=== PATIENT | male | born 1950 | race Caucasian/White ===

== ENCOUNTER 2023-08-11 09:56 | Day surgery (SDC) | payer MEDICARE, OTHER ==
[~2023-08-11 09:56] MED LIST: Lactated Ringers 1,000 ML IV SCH; Sodium Chloride 0.9% 10 ML Syringe FLUSH PRN; Sodium Chloride 0.9% 10 ML Syringe FLUSH SCH
[2023-08-11] MEDS ORDERED: Propofol 200 MG/20 ML SDV ONE ×4 (10:11→11:10)
[2023-08-11] MEDS ORDERED: Ondansetron 4 MG/2 ML SDV ONE (10:30)
[2023-08-11] MEDS ORDERED: Lactated Ringers 1,000 ML IV ONE (11:00)
== END 2023-08-11 12:22 | disposition home or self-care (01) ==
LOC: JD.SDS 09:56
PROVIDERS: ATTEND Surgery
DX: Z12.11 Encounter for screening for malignant neoplasm of colon (principal); D12.5 Benign neoplasm of sigmoid colon; K51.40 Inflammatory polyps of colon without complications; K57.30 Diverticulosis of large intestine without perforation or abscess without bleeding; F41.8 Other specified anxiety disorders; I10 Essential (primary) hypertension; E78.5 Hyperlipidemia, unspecified; G47.00 Insomnia, unspecified; E11.9 Type 2 diabetes mellitus without complications; F17.210 Nicotine dependence, cigarettes, uncomplicated; Z88.8 Allergy status to other drugs, medicaments and biological substances; Z88.7 Allergy status to serum and vaccine; Z79.84 Long term (current) use of oral hypoglycemic drugs; Z79.899 Other long term (current) drug therapy
CPT/HCPCS: 45385; J2405; J2704; J7120; 88305; 88313

== ENCOUNTER 2023-11-19 10:50 | Day surgery (SDC) | payer MEDICARE, OTHER ==
[~2023-11-19 10:50] MED LIST changes: -Lactated Ringers 1,000 ML IV SCH; +Lidocaine 1% PF 2 ML SDV INJECT SCH; +Proparacaine 0.5% Ophth Soln 15 ML Bottle EYEBOTH SCH; -Sodium Chloride 0.9% 10 ML Syringe FLUSH PRN; -Sodium Chloride 0.9% 10 ML Syringe FLUSH SCH
[2023-11-19] MEDS: Polymyxin B/Trimethoprim 10 ML Bottle EYERT SCH (11:50)
[2023-11-19] MEDS: Brimonidine 0.2% Ophth Soln 5 ML Bottle EYERT SCH (11:55)
[2023-11-19] MEDS: Phenylephrine 2.5% Ophth Soln 2 ML Bot EYERT SCH (11:58)
[2023-11-19] MEDS: Tropicamide 1% Ophth Soln 3 ML Bottle EYERT SCH (12:00)
[2023-11-19] MEDS: Cefuroxime 10 MG/ML SYRINGE EYERT SCH (12:40)
[2023-11-19] MEDS ORDERED: Midazolam 1 MG/ML 2 ML SDV ONE (12:42)
[2023-11-19] MEDS ORDERED: Lactated Ringers 1,000 ML IV ONE (12:45)
[2023-11-19] MEDS ORDERED: Propofol 200 MG/20 ML SDV ONE (12:46)
[2023-11-19] MEDS: Pilocarpine 4% Ophth Soln 15 ML Bot EYERT SCH (13:00)
== END 2023-11-19 14:05 | disposition home or self-care (01) ==
LOC: JD.SDS 10:50
PROVIDERS: ATTEND Ophthalmology
DX: E11.36 Type 2 diabetes mellitus with diabetic cataract (principal); H25.813 Combined forms of age-related cataract, bilateral; H02.831 Dermatochalasis of right upper eyelid; H02.834 Dermatochalasis of left upper eyelid; I10 Essential (primary) hypertension; Z79.84 Long term (current) use of oral hypoglycemic drugs; Z79.899 Other long term (current) drug therapy
CPT/HCPCS: A9270-GY; J0697; J2250; J2704; J3490; J7120; V2632

== ENCOUNTER 2023-12-17 09:20 | Day surgery (SDC) | payer OTHER ==
[~2023-12-17 09:20] MED LIST changes: -Lidocaine 1% PF 2 ML SDV INJECT SCH; -Proparacaine 0.5% Ophth Soln 15 ML Bottle EYEBOTH SCH; +Tetracaine HCl/PF 0.5% 4 ML Bottle EYEBOTH SCH
[2023-12-17] MEDS ORDERED: Lactated Ringers 1,000 ML IV ONE ×2 (10:20→12:00)
[2023-12-17] MEDS: Polymyxin B/Trimethoprim 10 ML Bottle EYERT SCH (10:58)
[2023-12-17] MEDS: Brimonidine 0.2% Ophth Soln 5 ML Bottle EYERT SCH (11:01)
[2023-12-17] MEDS: Phenylephrine 2.5% Ophth Soln 2 ML Bot EYERT SCH (11:03)
[2023-12-17] MEDS: Tropicamide 1% Ophth Soln 3 ML Bottle EYERT SCH (11:05)
[2023-12-17] MEDS ORDERED: Midazolam 1 MG/ML 2 ML SDV ONE (11:55)
[2023-12-17] MEDS ORDERED: Propofol 200 MG/20 ML SDV ONE ×2 (11:55→12:15)
[2023-12-17] MEDS ORDERED: fentaNYL 100 MCG/2 ML SDV ONE (12:02)
[2023-12-17] MEDS: Pilocarpine 4% Ophth Soln 15 ML Bot EYERT SCH (12:24)
[2023-12-17] MEDS: Cefuroxime 10 MG/ML SYRINGE EYERT SCH (12:24)
== END 2023-12-17 13:45 | disposition home or self-care (01) ==
LOC: JD.SDS 09:20
PROVIDERS: ATTEND Ophthalmology
DX: E11.36 Type 2 diabetes mellitus with diabetic cataract (principal); H21.81 Floppy iris syndrome; H21.42 Pupillary membranes, left eye; H52.31 Anisometropia; H02.831 Dermatochalasis of right upper eyelid; H02.834 Dermatochalasis of left upper eyelid; I10 Essential (primary) hypertension; F03.90 Unspecified dementia, unspecified severity, without behavioral disturbance, psychotic disturbance, mood disturbance, and anxiety; F41.9 Anxiety disorder, unspecified; F17.200 Nicotine dependence, unspecified, uncomplicated; Z79.84 Long term (current) use of oral hypoglycemic drugs; Z79.899 Other long term (current) drug therapy; Z88.8 Allergy status to other drugs, medicaments and biological substances
CPT/HCPCS: A9270-GY; J0697; J2250; J2704; J3010; J3490; J7120; V2788-GY